=== PATIENT | male | born 1965 | race Caucasian/White ===

== ENCOUNTER → 2016-09-30 | Outpatient (CLI) | payer MEDICAID ==
[~2016-09-30] MED LIST: AMBIEN10 MG PO; ASPIRIN E.C. 8181 MG PO; ATORVASTATIN CA80 MG PO; BACTRIM DS TAB1 EACH PO; COREG 3.123.125 MG/T PO; DURAGESIC50 MCG/PAT TD; FISH OIL500 M2 PO; GABAPENTIN600 MG PO; LAMICTAL200 M1 PO; LASIX20 M1 PO; LISINOPRIL5 MG PO; METOPROLOL SUCC25 M1 PO; PLAVIX 75MG TAB75 MG PO; PROTONIX 40MG T40 MG PO; RANEXA500 M1 PO; REMERON30 M1 PO; SERTRALINE; VICODIN ES 3001 TAB PO; ZOLOFT 100MG100 MG PO
== END ==
LOC: RAD 09:01
DX: G62.9 Polyneuropathy, unspecified (principal)
CPT/HCPCS: Q9967

== ENCOUNTER → 2016-10-19 | Outpatient (CLI) | payer MEDICAID | LOC: LAB 09:04 | DX: I25.10 Atherosclerotic heart disease of native coronary artery without angina pectoris (principal); G62.9 Polyneuropathy, unspecified; E23.0 Hypopituitarism ==

== ENCOUNTER → 2017-02-24 | Outpatient (CLI) | payer MEDICAID ==
[2016-08-09 21:52] VITALS: BP 120/92
== END ==
LOC: LAB 16:30
DX: I25.5 Ischemic cardiomyopathy (principal); R73.02 Impaired glucose tolerance (oral)

== ENCOUNTER → 2017-04-18 | Outpatient (CLI) | payer OTHER ==
[2016-08-09 21:52] VITALS: BP 120/92
== END ==
LOC: LAB 11:02
DX: Z51.81 Encounter for therapeutic drug level monitoring (principal); Z79.899 Other long term (current) drug therapy

== ENCOUNTER → 2017-08-17 | Outpatient (CLI) | payer OTHER ==
[2016-08-09 21:52] VITALS: BP 120/92
== END ==
LOC: LAB 11:36
DX: Z79.899 Other long term (current) drug therapy (principal); Z13.89 Encounter for screening for other disorder; F99 Mental disorder, not otherwise specified

== ENCOUNTER → 2017-08-26 | Outpatient (CLI) | payer OTHER ==
[2016-08-09 21:52] VITALS: BP 120/92
[2017-08-26 10:39] LABS: EOS # 0.1 (0.04-0.40); EOS % 1.4 % (0.0-4.0); HEMATOCRIT 38.7 % (42.0-52.0); HEMOGLOBIN 12.7 g/dL (13.5-18.0); LYMPH# 1.8 (1.50-4.00); MEAN CELL VOLUME 88 fl (78-100); MEAN CORPUSCULAR HEMOGLOBIN 29 pg (27-31); MEAN CORPUSCULAR HGB CONC 33 g/dL (33-37); MEAN PLATELET VOLUME 9.1 fl (7.4-10.4); MONO # 0.5 (0.20-0.80); NEU # 3.3 (1.40-6.50); PLATELET COUNT 325 K/mm3 (130-400); RED BLOOD COUNT 4.42 M/mm3 (4.20-5.60); RED CELL DISTRIBUTION WIDTH 13.7 % (11.5-14.5); WHITE BLOOD COUNT 5.7 K/mm3 (4.8-10.8)
[2017-08-26 10:48] LABS: ALBUMIN 4.6 g/dL (3.5-5.0); BUN/CREATININE RATIO 19.7 (6.0-26.0); CALCIUM 10.1 mg/dL (8.4-10.2); POTASSIUM 4.5 mmol/L (3.6-5.0); TOTAL BILIRUBIN 0.6 mg/dL (0.2-1.3); TOTAL PROTEIN 7.8 g/dL (6.3-8.2)
[2017-08-26 11:44] LABS: ERYTHROCYTE SEDIMENTATION RATE 6 mm/hr (0-20)
[2017-08-26 11:45] LABS: URINE APPEARANCE CLEAR; URINE BILIRUBIN NEGATIVE (NEGATIVE); URINE BLOOD NEGATIVE (NEGATIVE); URINE COLOR YELLOW; URINE GLUCOSE NEGATIVE (NEGATIVE); URINE KETONE NEGATIVE (NEGATIVE); URINE LEUKOCYTE ESTERASE NEGATIVE (NEGATIVE); URINE MUCUS PRESENT (NOT PRESENT); URINE NITRATE NEGATIVE (NEGATIVE); URINE PROTEIN(semi-quant) TRACE mg/dL (NEGATIVE); URINE UROBILINOGEN NORMAL (NORMAL); URINE WBC 0-1 /hpf (0-3)
[2017-08-26 23:32] LABS: TESTOSTERONE 95 ng/dL (221-716)
== END ==
LOC: LAB 10:15
PROVIDERS: Internal Medicine
DX: I25.5 Ischemic cardiomyopathy (principal); R73.02 Impaired glucose tolerance (oral); Z12.5 Encounter for screening for malignant neoplasm of prostate; E78.2 Mixed hyperlipidemia; E23.0 Hypopituitarism; Z12.11 Encounter for screening for malignant neoplasm of colon; I10 Essential (primary) hypertension; R20.2 Paresthesia of skin; D50.8 Other iron deficiency anemias

== ENCOUNTER → 2019-01-23 | Outpatient (CLI) | payer OTHER ==
[2016-08-09 21:52] VITALS: BP 120/92
[2019-01-23 15:31] LABS: EOS # 0.1 (0.04-0.40); EOS % 0.9 % (0.0-4.0); HEMATOCRIT 46.9 % (42.0-52.0); HEMOGLOBIN 15.1 g/dL (13.5-18.0); LYMPH# 1.2 (1.50-4.00); MEAN CELL VOLUME 87 fl (78-100); MEAN CORPUSCULAR HEMOGLOBIN 28 pg (27-31); MEAN CORPUSCULAR HGB CONC 32 g/dL (33-37); MEAN PLATELET VOLUME 9.1 fl (7.4-10.4); MONO # 0.5 (0.20-0.80); NEU # 4.1 (1.40-6.50); PLATELET COUNT 286 K/mm3 (130-400); RED BLOOD COUNT 5.42 M/mm3 (4.20-5.60); RED CELL DISTRIBUTION WIDTH 13.7 % (11.5-14.5); WHITE BLOOD COUNT 5.8 K/mm3 (4.8-10.8)
[2019-01-23 16:04] LABS: URINE APPEARANCE CLEAR; URINE BILIRUBIN NEGATIVE (NEGATIVE); URINE BLOOD NEGATIVE (NEGATIVE); URINE COLOR YELLOW; URINE GLUCOSE NEGATIVE (NEGATIVE); URINE KETONE NEGATIVE (NEGATIVE); URINE LEUKOCYTE ESTERASE NEGATIVE (NEGATIVE); URINE NITRATE NEGATIVE (NEGATIVE); URINE PROTEIN(semi-quant) NEGATIVE (NEGATIVE); URINE UROBILINOGEN NORMAL (NORMAL)
[2019-01-23 16:05] LABS: URINE WBC 0-1 /hpf (0-3)
[2019-01-23 16:28] LABS: ALBUMIN 4.8 g/dL (3.5-5.0); CALCIUM 10.2 mg/dL (8.4-10.2); POTASSIUM 4.1 mmol/L (3.5-5.1); TOTAL BILIRUBIN 0.6 mg/dL (0.2-1.2); TOTAL PROTEIN 7.7 g/dL (6.4-8.3)
[2019-01-23 16:37] LABS: ERYTHROCYTE SEDIMENTATION RATE 1 mm/hr (0-20)
[2019-01-23 23:03] LABS: TESTOSTERONE 641 ng/dL (221-716)
[2019-01-23 23:08] LABS: CREATININE OTHER SOURCE 68 mg/dL (())
== END ==
LOC: LAB 15:12
PROVIDERS: Internal Medicine
DX: Z12.5 Encounter for screening for malignant neoplasm of prostate (principal); Z12.11 Encounter for screening for malignant neoplasm of colon; G62.9 Polyneuropathy, unspecified; I25.5 Ischemic cardiomyopathy; J45.40 Moderate persistent asthma, uncomplicated; E29.1 Testicular hypofunction

== ENCOUNTER → 2019-02-13 | Outpatient (CLI) | payer OTHER ==
[2016-08-09 21:52] VITALS: BP 120/92
== END ==
LOC: RAD 08:12 → LAB 08:12 → RAD 09:00
PROVIDERS: Internal Medicine
DX: I65.29 Occlusion and stenosis of unspecified carotid artery (principal); I77.1 Stricture of artery; R79.89 Other specified abnormal findings of blood chemistry
CPT/HCPCS: Q9967

== ENCOUNTER → 2019-10-09 | Outpatient (CLI) | payer OTHER ==
[2016-08-09 21:52] VITALS: BP 120/92
[2019-10-09 17:15] LABS: ALBUMIN 5.1 g/dL (3.5-5.0); POTASSIUM 4.4 mmol/L (3.5-5.1)
[2019-10-09 17:16] LABS: CALCIUM 10.2 mg/dL (8.3-10.5)
[2019-10-09 17:19] LABS: TOTAL BILIRUBIN 0.6 mg/dL (0.2-1.2)
[2019-10-09 17:24] LABS: MAGNESIUM 2.25 mg/dL (1.60-2.60)
[2019-10-09 17:28] LABS: EOS % 0.6 % (0.0-4.0); HEMATOCRIT 37.5 % (42.0-52.0); HEMOGLOBIN 12.4 g/dL (13.5-18.0); LYMPH# 2.1 (1.50-4.00); MEAN CELL VOLUME 86 fl (78-100); MEAN CORPUSCULAR HEMOGLOBIN 28 pg (27-31); MEAN CORPUSCULAR HGB CONC 33 g/dL (33-37); MEAN PLATELET VOLUME 9.4 fl (7.4-10.4); MONO # 0.6 (0.20-0.80); PLATELET COUNT 340 K/mm3 (130-400); RED BLOOD COUNT 4.37 M/mm3 (4.20-5.60); RED CELL DISTRIBUTION WIDTH 13.2 % (11.5-14.5); WHITE BLOOD COUNT 6.7 K/mm3 (4.8-10.8)
[2019-10-09 18:05] LABS: ERYTHROCYTE SEDIMENTATION RATE 7 mm/hr (0-20)
[2019-10-10 16:54] LABS: TESTOSTERONE 293 ng/dL (221-716)
== END ==
LOC: LAB 16:46
PROVIDERS: Internal Medicine
DX: G62.9 Polyneuropathy, unspecified (principal); E29.1 Testicular hypofunction; I25.5 Ischemic cardiomyopathy; J45.40 Moderate persistent asthma, uncomplicated; E03.4 Atrophy of thyroid (acquired)

== ENCOUNTER → 2020-04-24 | Outpatient (CLI) | payer OTHER ==
[2016-08-09 21:52] VITALS: BP 120/92
[2020-04-24 12:16] LABS: EOS # 0.1 (0.04-0.40); EOS % 1.6 % (0.0-4.0); HEMATOCRIT 45.1 % (42.0-52.0); HEMOGLOBIN 15.2 g/dL (13.5-18.0); LYMPH# 2.1 (1.50-4.00); MEAN CELL VOLUME 84 fl (78-100); MEAN CORPUSCULAR HEMOGLOBIN 28 pg (27-31); MEAN CORPUSCULAR HGB CONC 34 g/dL (33-37); MEAN PLATELET VOLUME 9.4 fl (7.4-10.4); MONO # 0.5 (0.20-0.80); NEU # 4.6 (1.40-6.50); PLATELET COUNT 311 K/mm3 (130-400); RED BLOOD COUNT 5.37 M/mm3 (4.20-5.60); RED CELL DISTRIBUTION WIDTH 13.1 % (11.5-14.5); WHITE BLOOD COUNT 7.4 K/mm3 (4.8-10.8)
[2020-04-24 12:22] LABS: ALBUMIN 4.7 g/dL (3.5-5.0); POTASSIUM 4.8 mmol/L (3.5-5.1)
[2020-04-24 12:23] LABS: CALCIUM 9.8 mg/dL (8.3-10.5)
[2020-04-24 12:26] LABS: TOTAL BILIRUBIN 0.4 mg/dL (0.2-1.2)
[2020-04-24 12:31] LABS: MAGNESIUM 2.31 mg/dL (1.60-2.60)
[2020-04-24 13:21] LABS: ERYTHROCYTE SEDIMENTATION RATE 0 mm/hr (0-20)
[2020-04-24 22:51] LABS: TESTOSTERONE 482 ng/dL (221-716)
== END ==
LOC: LAB 12:01
PROVIDERS: Internal Medicine
DX: J45.40 Moderate persistent asthma, uncomplicated (principal); G62.9 Polyneuropathy, unspecified; I25.5 Ischemic cardiomyopathy; E29.1 Testicular hypofunction; K90.9 Intestinal malabsorption, unspecified; R73.02 Impaired glucose tolerance (oral)

== ENCOUNTER → 2020-04-30 | Outpatient (CLI) | payer OTHER ==
[2016-08-09 21:52] VITALS: BP 120/92
== END ==
LOC: RAD 07:11
DX: N17.9 Acute kidney failure, unspecified (principal)

== ENCOUNTER → 2020-05-15 | Outpatient (CLI) | payer OTHER, MEDICARE ==
[2016-08-09 21:52] VITALS: BP 120/92
[2020-05-15 15:19] LABS: ALBUMIN 4.9 g/dL (3.5-5.0); POTASSIUM 4.3 mmol/L (3.5-5.1)
[2020-05-15 15:20] LABS: CALCIUM 9.7 mg/dL (8.3-10.5)
[2020-05-15 15:22] LABS: TOTAL PROTEIN 8.1 g/dL (6.4-8.3)
[2020-05-15 15:23] LABS: TOTAL BILIRUBIN 0.4 mg/dL (0.2-1.2)
== END ==
LOC: LAB 14:54
PROVIDERS: Internal Medicine
DX: J45.40 Moderate persistent asthma, uncomplicated (principal); G62.9 Polyneuropathy, unspecified; D64.9 Anemia, unspecified; I25.5 Ischemic cardiomyopathy

== ENCOUNTER → 2020-12-19 | Outpatient (CLI) | payer MEDICARE ==
[2016-08-09 21:52] VITALS: BP 120/92
[2020-12-19 16:57] LABS: EOS # 0.1 (0.04-0.40); HEMATOCRIT 44.3 % (42.0-52.0); HEMOGLOBIN 14.6 g/dL (13.5-18.0); LYMPH# 1.5 (1.50-4.00); MEAN CELL VOLUME 87 fl (78-100); MEAN CORPUSCULAR HEMOGLOBIN 29 pg (27-31); MEAN CORPUSCULAR HGB CONC 33 g/dL (33-37); MEAN PLATELET VOLUME 9.1 fl (7.4-10.4); MONO # 0.5 (0.20-0.80); NEU # 4.2 (1.40-6.50); PLATELET COUNT 326 K/mm3 (130-400); RED CELL DISTRIBUTION WIDTH 13.4 % (11.5-14.5); WHITE BLOOD COUNT 6.3 K/mm3 (4.8-10.8)
[2020-12-19 17:03] LABS: ALBUMIN 4.7 g/dL (3.5-5.0); POTASSIUM 4.5 mmol/L (3.5-5.1)
[2020-12-19 17:04] LABS: CALCIUM 9.2 mg/dL (8.3-10.5)
[2020-12-19 17:06] LABS: TOTAL PROTEIN 7.6 g/dL (6.4-8.3)
[2020-12-19 17:08] LABS: TOTAL BILIRUBIN 0.6 mg/dL (0.2-1.2)
[2020-12-20 18:41] LABS: TESTOSTERONE 376 ng/dL (221-716)
== END ==
LOC: LAB 16:40
PROVIDERS: Internal Medicine
DX: Z12.5 Encounter for screening for malignant neoplasm of prostate (principal); I25.10 Atherosclerotic heart disease of native coronary artery without angina pectoris; D50.9 Iron deficiency anemia, unspecified; K90.9 Intestinal malabsorption, unspecified; E23.0 Hypopituitarism

== ENCOUNTER → 2021-06-09 | Outpatient (CLI) | payer MEDICARE ==
[2021-06-09 11:07] LABS: BASO # 0.02 (0.02-0.10); EOS # 0.07 (0.04-0.40); EOS % 1.1 % (0.0-4.0); HEMOGLOBIN 14.2 g/dL (13.5-18.0); LYMPH# 1.95 (1.50-4.00); MEAN CELL VOLUME 87 fl (78-100); MEAN CORPUSCULAR HEMOGLOBIN 29 pg (27-31); MEAN CORPUSCULAR HGB CONC 33 g/dL (33-37); MEAN PLATELET VOLUME 8.8 fl (7.4-10.4); MONO # 0.49 (0.20-0.80); NEU # 3.56 (1.40-6.50); PLATELET COUNT 299 K/mm3 (130-400); RED BLOOD COUNT 4.95 M/mm3 (4.20-5.60); RED CELL DISTRIBUTION WIDTH 13.3 % (11.5-14.5); WHITE BLOOD COUNT 6.1 K/mm3 (4.8-10.8)
[2021-06-09 11:46] LABS: ALBUMIN 4.5 g/dL (3.5-5.0); POTASSIUM 3.8 mmol/L (3.5-5.1)
[2021-06-09 11:48] LABS: CALCIUM 10.5 mg/dL (8.3-10.5)
[2021-06-09 11:49] LABS: TOTAL PROTEIN 7.6 g/dL (6.4-8.3)
[2021-06-09 11:50] LABS: TOTAL BILIRUBIN 0.4 mg/dL (0.2-1.2)
== END ==
LOC: LAB 10:49
PROVIDERS: Internal Medicine
DX: I25.10 Atherosclerotic heart disease of native coronary artery without angina pectoris (principal); K90.9 Intestinal malabsorption, unspecified

== ENCOUNTER → 2021-09-21 | Outpatient (CLI) | payer MEDICARE ==
[2021-09-21 15:50] LABS: ALBUMIN 4.9 g/dL (3.5-5.0)
[2021-09-21 15:52] LABS: CALCIUM 10.1 mg/dL (8.3-10.5)
[2021-09-21 15:53] LABS: TOTAL PROTEIN 8.1 g/dL (6.4-8.3)
[2021-09-21 15:55] LABS: TOTAL BILIRUBIN 0.7 mg/dL (0.2-1.2)
== END ==
LOC: LAB 15:08
PROVIDERS: Internal Medicine
DX: I25.10 Atherosclerotic heart disease of native coronary artery without angina pectoris (principal); K90.9 Intestinal malabsorption, unspecified